=== PATIENT | female | born 1985 | race Caucasian/White ===

== ENCOUNTER 2018-05-03 09:48 | Emergency (ER) | payer OTHER ==
[2018-05-03] MEDS ORDERED: Tetan/Diph/Pertus SYR(Tdap)* 0.5 ML SYR(BOOSTRIX) use SYR IM ONE ×2 (10:09→10:48)
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
[2018-05-03] MEDS ORDERED: Sodium Bicarbonate 8.4% SYR* 10 ML SYRINGE IV ONE (11:06)
--- NOTE | 2018-05-03 11:31 | RAD ---
INDICATION: Right shoulder pain COMPARISON: None TECHNIQUE: Routine frontal, Y and axial views were obtained. FINDINGS: The bony structures, joint spaces, and soft tissues are normal for age. IMPRESSION: NEGATIVE EXAMINATION.
[2018-05-03] MEDS ORDERED: Lidocaine 1%* 5 ML VIAL ONE (12:09)
[2018-05-03] MEDS ORDERED: Lidocaine 1%* 5 ML VIAL INJ ONE (12:09)
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
[2018-05-03] MEDS ORDERED: Acetaminophen TAB* 325 MG PO ONE (12:45)
[2018-05-03 12:59] VITALS: BP 137/81
== END 2018-05-03 12:59 | disposition home or self-care (01) ==
LOC: ED 09:48
DX: S06.0X9A Concussion with loss of consciousness of unspecified duration, initial encounter (principal); S01.01XA Laceration without foreign body of scalp, initial encounter; S40.011A Contusion of right shoulder, initial encounter; V43.62XA Car passenger injured in collision with other type car in traffic accident, initial encounter; Y92.488 Other paved roadways as the place of occurrence of the external cause; Z88.0 Allergy status to penicillin; S16.1XXA Strain of muscle, fascia and tendon at neck level, initial encounter
CPT/HCPCS: 12001; 70450; 72125; 90471; 90715; 96374; 99283; A9270-GY